=== PATIENT | male | born 1950 | race Caucasian/White ===

== ENCOUNTER 2017-12-31 08:10 | Emergency (ER) | payer MEDICARE, OTHER ==
[~2017-12-31] VITALS: Ht 172.7 cm; Wt 81.0 kg
[2017-12-31] MEDS ORDERED: KETOROLAC 30 MG/1 ML ONE (09:24)
[2017-12-31] MEDS ORDERED: OXYcodone/APAP 5/325MG TABLET ONE (09:25)
[2017-12-31 09:26] LABS: BASOPHILS % (AUTO) 0 % (0-1); EOSINOPHILS # (AUTO) 0.02 x10^3/uL (0-0.4); EOSINOPHILS % (AUTO) 0 % (1-7); LYMPHOCYTES # (AUTO) 0.92 x10^3/uL (1-3.4); LYMPHOCYTES % (AUTO) 8 % (22-44); MD NO; MEAN CORPUSCULAR HGB CONC 34.1 g/dL (33.2-36.2); MEAN CORPUSCULAR VOLUME 96.7 fL (81-97); MEAN PLATELET VOLUME 7.1 fL (7.4-10.4); MONOCYTES # (AUTO) 0.56 x10^3/uL (0.2-0.8); MONOCYTES % (AUTO) 5 % (2-9); NEUTROPHILS # (AUTO) 10.49 x10^3/uL (1.8-6.8); NEUTROPHILS % (AUTO) 88 % (42-75); PLATELET COUNT 293 x10^3/uL (130-400); RED BLOOD COUNT 4.65 x10^6/uL (4.38-5.82); RED CELL DISTRIBUTION WIDTH 13.9 % (9.4-14.8)
[2017-12-31] MEDS ORDERED: KETOROLAC 30 MG/1 ML IM ONE ×2 (09:30)
[2017-12-31] MEDS ORDERED: PLEASE ENTER ALLERGIES MC SCH (09:30)
[2017-12-31] MEDS ORDERED: OXYcodone/APAP 5/325MG TABLET PO ONE (09:30)
[2017-12-31] MEDS ORDERED: VALS40TA2 PO (09:41)
[2017-12-31] MEDS ORDERED: UNK CHOLESTEROL (09:41)
[2017-12-31 10:07] VITALS: BP 152/92
== END 2017-12-31 10:56 | disposition home or self-care (01) ==
LOC: ED 10:45
DX: M19.071 Primary osteoarthritis, right ankle and foot (principal); M19.032 Primary osteoarthritis, left wrist; M10.9 Gout, unspecified; I10 Essential (primary) hypertension; E78.00 Pure hypercholesterolemia, unspecified
CPT/HCPCS: 36415; 73110; 73630; 84550; 85025; 96372; 99285; J1885

== ENCOUNTER 2020-03-17 10:47 | Emergency (ER) | payer MEDICARE, OTHER ==
[~2020-03-17] VITALS: Ht 172.7 cm; Wt 80.0 kg
[~2020-03-17 10:47] MED LIST: UNK CHOLESTEROL; VALS40TA2 PO
[2020-03-17] MEDS ORDERED: SODIUM CHLORIDE FLUSH 10ML SYR IVF ONE (11:30)
[2020-03-17] MEDS ORDERED: SODIUM CHLORIDE 0.9% 1,000ML IVBOLUS ONE (11:30)
--- NOTE | 2020-03-17 11:48 | NUR ---
PT PRESENTS TO ED WITH FRIEND, PT HAD SYNCOPAL EPISODE X 2 OCCURRING YESTERDAY. PT STATES HE WAS SITTING DOWN THE FIRST EPISODE, THE SECOND TIME PT WAS STANDING AND FAINTED. PT STATES HE DID HIT HEAD SECOND TIME, BUT DOES NOT HAVE A HEADACHE AT THIS TIME. PT DENIES TAKING BLOOD THINNERS. PT IS A&OX4, RESPS EVEN AND UNLABORED. ALL MONITORS IN PLACE. PT IS NEUROLOGICALLY INTACT. PT STATES HE DRINKS 3 COCKTAILS ON SOME DAYS. PT IS TREMULOUS WITH ARMS EXTENDED. PUPILS EQUAL, ROUND AND REACTIVE. LABS PENDING, IV PLACED, NS INFUSING. CALL LIGHT IN REACH. PT UPDATED WITH POC.
[2020-03-17 12:01] LABS: BASOPHILS # (AUTO) 0.07 x10^3/uL (0-0.1); BASOPHILS % (AUTO) 1 % (0-1); EOSINOPHILS # (AUTO) 0.02 x10^3/uL (0-0.4); EOSINOPHILS % (AUTO) 0 % (1-7); LYMPHOCYTES # (AUTO) 0.72 x10^3/uL (1-3.4); LYMPHOCYTES % (AUTO) 7 % (22-44); MD NO; MEAN CORPUSCULAR HEMOGLOBIN 32.9 pg (27.5-34.5); MEAN CORPUSCULAR VOLUME 99.6 fL (81-97); MEAN PLATELET VOLUME 7.9 fL (7.4-10.4); MONOCYTES # (AUTO) 0.88 x10^3/uL (0.2-0.8); MONOCYTES % (AUTO) 9 % (2-9); NEUTROPHILS # (AUTO) 8.06 x10^3/uL (1.8-6.8); NEUTROPHILS % (AUTO) 83 % (42-75); PLATELET COUNT 143 x10^3/uL (130-400); RED BLOOD COUNT 3.98 x10^6/uL (4.38-5.82); RED CELL DISTRIBUTION WIDTH 14.3 % (9.4-14.8)
[2020-03-17 12:06] LABS: ALBUMIN 2.5 g/dL (3.4-5.0); ANION GAP 6 mmol/L (5-15); CALCIUM 8.1 mg/dL (8.5-10.1); CHLORIDE 105 mmol/L (98-107); CREATININE 1.43 mg/dL (0.7-1.3)
[2020-03-17 12:11] LABS: ALKALINE PHOSPHATASE 221 U/L (45-117); BILIRUBIN,TOTAL 2.5 mg/dL (0.2-1.0); TROPONIN I < 0.015 ng/mL (0.000-0.045)
[2020-03-17 12:12] LABS: ALANINE AMINOTRANSFERASE 69 U/L (12-78)
--- NOTE | 2020-03-17 12:17 | NUR ---
all results back , chart up for recheck. awaiting MD and dispo.
--- NOTE | 2020-03-17 13:17 | NUR ---
PT REASSESSED, NO VISIBLE TREMORS NOTED. SINUS TACH RATE 90'S WITH NO ECTOPY ON ROD AND TUBE STRAIGHTENER. PT HAS NO COMPLAINT AT THIS TIME. LUNG BASES AUSCULTATED, CLEAR. CHART UP FOR RECHECK. AWAITING MD AND DISPO.
[2020-03-17] MEDS ORDERED: THIAMINE 100MG TABLET PO ONE (14:00)
[2020-03-17] MEDS ORDERED: THIAMINE 100MG TABLET ONE (14:07)
[2020-03-17 14:17] VITALS: BP 158/89
== END 2020-03-17 14:19 | disposition home or self-care (01) ==
LOC: ED 12:31
DX: N17.9 Acute kidney failure, unspecified (principal); R55 Syncope and collapse; E86.0 Dehydration; F10.239 Alcohol dependence with withdrawal, unspecified; Y90.0 Blood alcohol level of less than 20 mg/100 ml; R00.0 Tachycardia, unspecified; I10 Essential (primary) hypertension; M19.90 Unspecified osteoarthritis, unspecified site
CPT/HCPCS: 36415; 71045; 80053; 80307; 83735; 84484; 85025; 93005; 99285; J7030

== ENCOUNTER 2020-05-12 09:55 | Observation (INO) | payer MEDICARE, OTHER ==
[~2020-05-12] VITALS: Ht 170.2 cm; Wt 72.1 kg
[~2020-05-12 09:55] MED LIST changes: +AMLO-211 PO; +CHLO25CA9 PO; +HYDR-3246 PO; +LOSA25TA25 PO; +OMEG-72 PO; +OXYC1TAB18 PO
[2020-05-12] MEDS ORDERED: SODIUM CHLORIDE 0.9% 1,000ML IVBOLUS ONE (10:00)
[2020-05-12 11:08] LABS: ALANINE AMINOTRANSFERASE 49 U/L (12-78); CALCIUM 8.2 mg/dL (8.5-10.1); CREATININE 0.93 mg/dL (0.7-1.3)
[2020-05-12 11:09] LABS: BASOPHILS % (AUTO) 1 % (0-1); EOSINOPHILS % (AUTO) 4 % (1-7); LYMPHOCYTES % (AUTO) 22 % (22-44); MEAN CORPUSCULAR HEMOGLOBIN 33.8 pg (27.5-34.5); MEAN CORPUSCULAR HGB CONC 33.2 g/dL (33.2-36.2); MEAN PLATELET VOLUME 8.9 fL (7.4-10.4); MONOCYTES % (AUTO) 10 % (2-9); NEUTROPHILS % (AUTO) 63 % (42-75); PLATELET COUNT 100 x10^3/uL (130-400); RED BLOOD COUNT 3.59 x10^6/uL (4.38-5.82)
[2020-05-12 11:11] LABS: MD NO
[2020-05-12 11:13] LABS: ALKALINE PHOSPHATASE 196 U/L (45-117); BILIRUBIN,TOTAL 2.3 mg/dL (0.2-1.0); TOTAL PROTEIN 7.8 g/dL (6.4-8.2); TROPONIN I < 0.015 ng/mL (0.000-0.045)
[2020-05-12 11:20] LABS: ANION GAP 4 mmol/L (5-15)
[2020-05-12 11:21] LABS: CHLORIDE 108 mmol/L (98-107)
[2020-05-12] MEDS ORDERED: MAGNESIUM SULFATE PMX 2GM/50ML 50 ML IV ONE (12:00)
[2020-05-12] MEDS ORDERED: MAGNESIUM SULFATE PMX 2GM/50ML 50 ML ONE (12:53)
[2020-05-12] MEDS ORDERED: ONDANSETRON 2MG/ML, 2ML IVPush PRN (15:00)
[2020-05-12] MEDS ORDERED: ACETAMINOPHEN 325 MG TABLET PO PRN (15:00)
[2020-05-12] MEDS ORDERED: ENOXAPARIN 40 MG/0.4 ML SQ SCH (15:00)
[2020-05-12] MEDS ORDERED: ONDANSETRON ODT 4 MG PO PRN (15:00)
[2020-05-12] MEDS ORDERED: MELATONIN 5 MG TABLET PO PRN (17:00)
[2020-05-12 17:16] VITALS: BP 155/94
[2020-05-12] MEDS: SODIUM CHLORIDE 0.9% 1,000 ML IV SCH (17:26)
[2020-05-12 20:30] VITALS: BP 149/84
[2020-05-13 02:58] VITALS: BP 157/89
[2020-05-13 05:11] LABS: BASOPHILS % (AUTO) 1 % (0-1); EOSINOPHILS % (AUTO) 4 % (1-7); LYMPHOCYTES % (AUTO) 23 % (22-44); MEAN CORPUSCULAR HEMOGLOBIN 33.7 pg (27.5-34.5); MEAN PLATELET VOLUME 8.6 fL (7.4-10.4); MONOCYTES % (AUTO) 10 % (2-9); NEUTROPHILS % (AUTO) 63 % (42-75); PLATELET COUNT 106 x10^3/uL (130-400); RED BLOOD COUNT 3.52 x10^6/uL (4.38-5.82); RED CELL DISTRIBUTION WIDTH 15.8 % (9.4-14.8)
[2020-05-13 05:19] LABS: MD NO
[2020-05-13 06:51] LABS: ALANINE AMINOTRANSFERASE 43 U/L (12-78); ALBUMIN 1.8 g/dL (3.4-5.0); ALKALINE PHOSPHATASE 173 U/L (45-117); ANION GAP 7 mmol/L (5-15); BILIRUBIN,TOTAL 2.3 mg/dL (0.2-1.0); CALCIUM 7.9 mg/dL (8.5-10.1); CHLORIDE 110 mmol/L (98-107); CREATININE 0.76 mg/dL (0.7-1.3); TOTAL PROTEIN 7.1 g/dL (6.4-8.2)
[2020-05-13 08:50] VITALS: BP 140/76
[2020-05-13] MEDS: SODIUM CHLORIDE 0.9% 1,000 ML IV SCH (08:56)
[2020-05-13] MEDS ORDERED: AMLODIPINE 10 MG TAB PO SCH (09:00)
[2020-05-13] MEDS ORDERED: LOSARTAN 25MG TABLET PO SCH (09:00)
[2020-05-13] MEDS ORDERED: OMEGA-3/FISH OIL CAPSULE PO SCH (09:00)
[2020-05-13] MEDS ORDERED: MAGNESIUM SULFATE PMX 2GM/50ML 50 ML IV ONE (10:30)
[2020-05-13 13:57] VITALS: BP 125/80
[2020-05-13] MEDS ORDERED: POTASSIUM CHLORIDE 20 MEQ TAB.ER.PRT PO ONE (16:00)
== END 2020-05-13 15:41 | disposition home or self-care (01) ==
LOC: ED 11:03 → INTOOBSV 14:22 → EDIP 14:22 → 3WST 16:47 → DCLOUNGE 05-13 15:32
PROVIDERS: ADMIT Hospitalist; ATTEND Internal Medicine
DX: E83.42 Hypomagnesemia (principal); D69.6 Thrombocytopenia, unspecified; E87.6 Hypokalemia; F10.10 Alcohol abuse, uncomplicated; K80.20 Calculus of gallbladder without cholecystitis without obstruction; I10 Essential (primary) hypertension; G89.29 Other chronic pain; M54.9 Dorsalgia, unspecified; E78.00 Pure hypercholesterolemia, unspecified; M10.9 Gout, unspecified; R74.01 Elevation of levels of liver transaminase levels; R29.6 Repeated falls; Z91.81 History of falling; Z79.899 Other long term (current) drug therapy
CPT/HCPCS: 36415; 70450; 71045; 80053; 80307; 82140; 83735; 84484; 85025; 96361; 96365; 96366; 96372; 97161; 97165; 99285; G0378; J1650; J3475; J7030